=== PATIENT | male | born 1975 | race Hispanic/Latino ===

== ENCOUNTER → 2025-03-29 | Outpatient (CLI) | payer OTHER ==
--- NOTE | 2025-03-29 16:19 | HMCIMG ---
EXAM: CR Lumbar Spine, 3 View. CLINICAL HISTORY: LUMBAGO W/ SCIATICA BI LATERAL COMPARISON: None provided. FINDINGS: BONES: No fracture or dislocation in the lumbar spine. Straightening of the cervical spine which may be due to paraspinal muscle spasm. ALIGNMENT: Alignment is within normal limits. No significant scoliosis. DISCS / DEGENERATIVE CHANGES: Mild degenerative changes with facet hypertrophy, disc space narrowing and small osteophytes. SOFT TISSUES: The soft tissues are unremarkable. IMPRESSION: 1. No fracture or dislocation in the lumbar spine. 2. Mild degenerative changes with facet hypertrophy, disc space narrowing and small osteophytes. 3. Straightening of the cervical spine which may be due to paraspinal muscle spasm. /[place]ullins
--- NOTE | 2025-03-29 16:27 | HMCIMG ---
TOE(S) 2+VWS RT REASON: INJURY OF TOE RIGHT FOOT ,,INITAIL ENCOUNTER TECHNIQUE: 3 views were obtained. FINDINGS: There is nondisplaced current fracture of the right fifth proximal phalanx. There is poor IR with orthopedic screws seen in the right fifth distal metatarsal. The remaining osseous structures appears to be normal.. There is no joint effusion. The soft tissues appear unremarkable. There is no evidence of a radiopaque foreign body. IMPRESSION: Nondisplaced comminuted transverse fracture of the base of the right fifth proximal phalanx status post ORIF of the right fifth distal metatarsal with orthopedic screws and deformity of the fifth metatarsal from an old trauma.
== END | disposition home or self-care (01) ==
LOC: RAH 11:44
DX: S92.591A Other fracture of right lesser toe(s), initial encounter for closed fracture (principal); S99.921A Unspecified injury of right foot, initial encounter; M47.816 Spondylosis without myelopathy or radiculopathy, lumbar region; M48.061 Spinal stenosis, lumbar region without neurogenic claudication; M54.41 Lumbago with sciatica, right side; M54.42 Lumbago with sciatica, left side; M25.78 Osteophyte, vertebrae; X58.XXXA Exposure to other specified factors, initial encounter; Y93.89 Activity, other specified; Y92.89 Other specified places as the place of occurrence of the external cause; Y99.8 Other external cause status
CPT/HCPCS: 72100; 73660